=== PATIENT | female | born 1980 | race African-American/Black ===

== ENCOUNTER 2022-10-13 17:40 | Emergency (ER) | payer MEDICAID, SELFPAY ==
[2022-10-13 17:43] VITALS: BP 132/72; PULSE 86; RESP 20; TEMP 36.5; O2SAT 100
--- NOTE | 2022-10-13 18:05 | PC.NURSE ---
Pt to intake desk demanding to go to a room in back. Explained to pt that there was no room available at this time. Pt goes into family service room and slams door.
--- NOTE | 2022-10-13 18:38 | ED.PSYCH ---
HPI - Psych General Chief Complaint: Psychiatric Symptoms Stated Complaint: people are after me Time Seen by Provider: 10/13/22 18:38 Mode of arrival: ambulatory Limitations: no limitations History of Present Illness HPI Narrative: patient is a 41 yo female who presents to the ED today ambulatory with a steady gait for evaluation of having concerns that people are after her and telling her to do things. she states that she needs an evaluation and to be placed somewhere. she blames it all on being in group home and not getting a shower. she denies drug use. denies any prior hx of psych admission. Related Data Allergies Allergy/AdvReac Type Severity Reaction Status Date / Time No Known Allergies Allergy Verified 10/14/22 00:24 Review of Systems Review of Systems: CONSTITUTIONAL: Denies fever, chills, or sweats. EYES: Denies visual changes, redness, or discharge. ENT: Denies rhinorrhea, congestion, sore throat, or otalgia. CARDIOVASCULAR: Denies chest pain, palpitations, or edema. RESPIRATORY: Denies cough or dyspnea. GASTROINTESTINAL: Denies abdominal pain, nausea, vomiting, or diarrhea. GENITOURINARY: Denies dysuria or hematuria. SKIN: Denies rash or itching. MUSCULOSKELETAL: Denies back pain, joint pain, or myalgia. NEUROLOGIC: Denies headache, numbness, or weakness. PSYCHIATRIC: hallucinations, paranoia. denies suicidal ideations or homicidal. All systems reviewed & are unremarkable except as noted in HPI and below FORMERLY [facility], [facility] Social History Social History Substance use type: marijuana and prescription drug Exam Narrative: GENERAL: unkempt, respirations regular and non-labored, no acute distress noted. HEAD: Normocephalic, atraumatic. EYES: PERRLA and EOMI. ENT: Nares clear, no rhinorrhea or epistaxis. Mucous membranes moist. NECK: Supple. CHEST: Clear to auscultation. No respiratory distress. HEART: Regular rate and rhythm. No murmur heard. Normal peripheral pulses. ABDOMEN: Soft, nontender, nondistended, normal active bowel sounds. EXTREMITIES: Normal range of motion. No edema. SKIN: Warm, dry, no rash. NEURO: No focal deficits. Alert and oriented x3. CN II-XII grossly intact PSYCH: denies suicidal or homicidal ideations. having active paranoia. flight of ideas-difficulty concentrating at times. Course Course Emergency Course: 2100: patient is medically clear for a psych evaluation at this time. RN to call for evaluation 10/14/22 0145: patient has been accepted to [facility]. Awaiting for accepting physician and RN report. 10/14/22: acceptance under DR. Guaman at [facility], she will go via EMS. Reevaluation(s) Reevaluation #1: pt sleeping at this time Date: 10/13/22 Time: 21:00 Reevaluation #2: patient continues to be rest on stretcher, sleeping Date: 10/13/22 Time: 22:01 Reevaluation #3: patient went to take a shower with security and RN, she locked her self in the bathroom. Staff was able to quickly get patient out and she was returned to her room Date: 10/13/22 Time: 23:41 Vital Signs Vital signs: Vital Signs Temperature 97.7 F 10/13/22 17:43 Pulse Rate 86 10/13/22 17:43 Respiratory Rate 20 10/13/22 17:43 Blood Pressure 132/72 10/13/22 17:43 Pulse Oximetry 100 10/13/22 17:43 Oxygen Delivery Room Air 10/13/22 17:43 Temperature 97.7 F 10/13/22 17:43 Pulse Rate 68 10/13/22 22:43 Respiratory Rate 18 10/13/22 22:43 Blood Pressure 127/90 10/13/22 22:43 Pulse Oximetry 100 10/13/22 22:43 Oxygen Delivery Room Air 10/13/22 17:43 Transfer Transfered to: [facility] Transportation: BLS Transfer rationale: inpatient psych services Accepting physician: Dr. Guaman Transfer comments: will go via EMS MDM - Psych MDM Narrative Medical decision making narrative: presents for feeling like people are after her and such. will obtain psych medical clearance and eval
--- NOTE | 2022-10-13 18:46 | PC.NURSE ---
Patient denies SI, but states she is afraid people are after her making it hard for her to care for herself.
[2022-10-13 19:57] LABS: Basophils Percent Auto 0.5 % (0.2-1.2); Eosinophils Absolute Auto 0.2 K/mm3 (0-0.3); Eosinophils Percent Auto 3.3 % (0-4.4); Hematocrit 33.2 % (37.0-47.0); Hemoglobin 10.9 g/dL (12.0-15.0); Immature Granulocyte Absolute 0.02 K/mm3 (0.00-0.031); Immature Granulocyte Percent A 0.3 % (0-0.5); Lymphocytes Absolute Auto 2.88 K/mm3 (0.9-3.2); Lymphocytes Percent Auto 45.5 % (18.3-44.2); Mean Corpuscular HGB Conc 32.8 g/dl (32-36); Mean Corpuscular Hemoglobin 33.1 pg (26-34); Mean Corpuscular Volume 100.9 fl (80-100); Mean Platelet Volume 10.4 fl (7.4-10.4); Monocytes Absolute Auto 0.6 K/mm3 (0.1-0.6); Monocytes Percent Auto 9.3 % (2.6-8.5); Neutrophils Absolute Auto 2.6 K/mm3 (1.3-6.7); Neutrophils Percent Auto 41.1 % (45.5-73.1); Platelet Count Result 288 k/mm3 (150-375); Red Blood Count 3.29 M/mm3 (4.2-5.4); Red Cell Distribution Width 13.6 % (11.5-14.5); White Blood Count 6.3 K/mm3 (4.5-10.0)
[2022-10-13 20:06] LABS: Acetaminophen < 10 ug/mL (10-30); Ethanol < 10 mg/dL (<10); Salicylate < 1.0 mg/dL (2-20)
[2022-10-13 20:07] LABS: Alanine Aminotransferase 17 U/L (6-35); Albumin Level 3.7 g/dL (3.5-5.1); Alkaline Phosphatase 70 U/L (38-126); Anion Gap 3 mmol/L (8-16); Aspartate Amino Transferase 21 U/L (14-36); Bilirubin,Total 0.4 mg/dL (0.2-1.3); Blood Urea Nitrogen 8 mg/dL (7-17); Calcium 8.7 mg/dL (8.4-10.2); Carbon Dioxide 30 mmol/L (22-30); Chloride 101 mmol/L (98-107); Estimated CRCL calculation 50 ml/min; Estimated Glomerular Filt Rate 55; Glucose 95 mg/dL (65-110); Potassium 3.7 mmol/L (3.4-5.0); Sodium 134 mmol/L (137-145)
[2022-10-13 20:12] LABS: Amphetamine Screen Urine Negative (Negative); Barbiturate Screen Urine Negative (Negative); Benzodiazepines Screen Urine Negative (Negative); Cannabinoid Screen Urine Positive (Negative); Cocaine Screen Urine Negative (Negative); Methadone Screen Urine Negative (Negative); Opiate Screen Urine Negative (Negative); Phencyclidine Screen Urine Negative (Negative)
[2022-10-13 20:45] LABS: Appearance Urine Clear (Clear); Bacteria Urine None Seen /hpf; Bilirubin Urine 1+ (Negative); Blood Urine Negative (Negative); Color Urine Dark Yellow (Yellow); Glucose Urine UA Negative (Negative); Ketones Urine Negative (Negative); Leukocyte Esterase Ur Negative LEU/UL (Negative); Nitrate Urine Negative (Negative); Non Pathogenic Casts 0-2; Protein Urine Trace mg/dL (Negative); RBC Urine 0-2 /hpf (0-2); Specific Grav Ur 1.029 (1.001-1.035); Squamous Epithelial Cell Urine Few /hpf (Few); WBC Urine 0-5 /hpf; pH Urine 5.5 (5.0-9.0)
[2022-10-13 20:52] LABS: Add Urine Microscopic? YES
--- NOTE | 2022-10-13 21:38 | PC.NURSE ---
Patient medically cleared and crisis called for evaluation. Will call back with covid result when it is done.
[2022-10-13 22:25] LABS: Influenza A QL RT-PCR Negative (Negative); Influenza B QL RT-PCR Negative (Negative); SARS-CoV-2 RNA PCR Negative (Negative)
--- NOTE | 2022-10-13 22:41 | PC.NURSE ---
Crisis called to update then of patient's negative covid result. They state they will send someone out now.
[2022-10-13 22:43] VITALS: BP 127/90; PULSE 68; RESP 18; O2SAT 100
--- NOTE | 2022-10-13 22:57 | PC.NURSE ---
Crisis at bedside for evaluation
--- NOTE | 2022-10-13 23:30 | PC.NURSE ---
Pt requesting shower. Pt taken to [facility] shower room with instrument repair technician Vivian and ED security at this time.
[2022-10-14] MEDS: ACETAMINOPHEN 500 MG TABLET 1000 MG PO (00:25)
--- NOTE | 2022-10-14 02:21 | PC.NURSE ---
Pt accepted at [facility] by Dr. Guaman, room 5309-B. Report to .
== END 2022-10-14 05:55 ==
PROVIDERS: Emergency Provider Nurse Practitioner
DX: F23 Brief psychotic disorder (principal); F22 Delusional disorders; Z20.822 Contact with and (suspected) exposure to COVID-19
CPT/HCPCS: 36415; 80053; 80307; 81001; 81025; 84443; 85025; 87636; 99285; A9270